=== PATIENT | female | born 1995 | race Caucasian/White ===

== ENCOUNTER → 2021-10-19 | Emergency (ER) | payer OTHER ==
[~2021-10-19] VITALS: Ht 157.5 cm; Wt 65.3 kg
[~2021-10-19] MED LIST: DIPHENHYDRAMINE HCL INJ 50 MG/ML VIAL IV ONE; FAMOTIDINE 20 MG/2 ML VIAL IV STA; FAMOTIDINE20 MG PO; METHYLPREDNISOLONE SOD SUCC 125 MG/2ML VIAL IV ONE; PREDNISONE20 MG PO
== END | disposition home or self-care (01) ==
LOC: FSED 18:50
DX: L50.9 Urticaria, unspecified (principal)
CPT/HCPCS: 81025; 99283

== ENCOUNTER 2022-10-10 18:38 | Emergency (ER) | payer OTHER ==
[~2022-10-10] VITALS: Ht 157.5 cm; Wt 63.5 kg
[~2022-10-10 18:38] MED LIST changes: -DIPHENHYDRAMINE HCL INJ 50 MG/ML VIAL IV ONE; -FAMOTIDINE 20 MG/2 ML VIAL IV STA; -METHYLPREDNISOLONE SOD SUCC 125 MG/2ML VIAL IV ONE
[2022-10-10] MEDS ORDERED: PENICILLIN V P500 MG PO (19:05)
[2022-10-10 19:13] VITALS: BP 120/73
== END 2022-10-10 19:13 | disposition home or self-care (01) ==
LOC: FSED 18:46
DX: K08.89 Other specified disorders of teeth and supporting structures (principal); K04.7 Periapical abscess without sinus; S02.5XXA Fracture of tooth (traumatic), initial encounter for closed fracture
CPT/HCPCS: 99282